=== PATIENT | male | born 1960 | race Caucasian/White ===

== ENCOUNTER 2025-06-05 14:14 | Emergency (ER) | payer OTHER ==
[~2025-06-05] VITALS: Ht 172.7 cm; Wt 99.8 kg
[2025-06-05] MEDS ORDERED: Acetaminophen/Oxycodone 5 MG/325 MG TABLET PO ONE (14:35)
[2025-06-05] MEDS ORDERED: diazePAM 5 MG TAB PO ONE (14:35)
[2025-06-05] MEDS ORDERED: Dexamethasone Sodium Phospha 20 MG/5 ML VIAL IV ONE (14:35)
[2025-06-05] MEDS ORDERED: PERCOCET 5-3251 EACH PO (16:33)
[2025-06-05] MEDS ORDERED: METHOCARBAMOL750 M1 PO (16:33)
[2025-06-05] MEDS ORDERED: PREDNISONE20 M1 PO (16:33)
== END 2025-06-05 16:38 | disposition home or self-care (01) ==
LOC: ED 14:14
DX: S16.1XXA Strain of muscle, fascia and tendon at neck level, initial encounter (principal); M54.2 Cervicalgia; X58.XXXA Exposure to other specified factors, initial encounter; Y93.89 Activity, other specified; Y92.89 Other specified places as the place of occurrence of the external cause; Y99.8 Other external cause status